=== PATIENT | male | born 1970 | race Caucasian/White ===

== ENCOUNTER 2021-11-17 05:35 | Emergency (ER) | payer SELFPAY ==
[~2021-11-17] VITALS: Ht 167.6 cm; Wt 106.6 kg
[2021-11-17 05:36] VITALS: BP_SYST 0
--- NOTE | 2021-11-17 05:54 | NUR ---
Pt came in due to "buzzing" in L ear. Pt states he thinks a bug went in his ear while he was sleeping. Denies any pain, but is reporting discomfort. Arrived to ED in no acute distress. Breathing adequately on RA.
--- NOTE | 2021-11-17 05:56 | NUR ---
L ear irrigated with 50 cc of normal saline. Small spider noted removed from ear by irrigation. Patient tolerated well. Denies any pain/discomfort.
--- NOTE | 2021-11-17 05:57 | NUR ---
Patient given written and verbal discharge instructions and verbalizes understanding. ER MD Holman discussed with patient the results and treatment provided. Patient in stable condition. ID arm band removed. Opportunity for questions provided and answered.
[2021-11-17 05:59] VITALS: BP_SYST 142
== END 2021-11-17 05:58 | disposition home or self-care (01) ==
LOC: SED 05:35
DX: T16.2XXA Foreign body in left ear, initial encounter (principal); Z91.013 Allergy to seafood; X58.XXXA Exposure to other specified factors, initial encounter; Y93.84 Activity, sleeping; Y92.89 Other specified places as the place of occurrence of the external cause; Y99.8 Other external cause status
CPT/HCPCS: 99284